=== PATIENT | female | born 1980 | race African-American/Black ===

== ENCOUNTER → 2018-01-10 | Outpatient (CLI) | payer BC ==
--- NOTE | 2018-01-10 11:25 | KCIC ---
PQRS Compliance Statement: One or more of the following individualized dose reduction techniques were utilized for this examination: 1. Automated exposure control 2. Adjustment of the mA and/or kV according to patient size 3. Use of iterative reconstruction technique CT abdomen/pelvis without contrast 01/10/2018 11:00 AM INDICATION: Left renal stone. Left-sided pain. COMPARISON: None available TECHNIQUE: Multiple axial CT images of the abdomen and pelvis were obtained without intravenous contrast. Coronal and sagittal reformats are provided. FINDINGS: Visualized portions of the lung bases are clear. Heart size is within normal limits. Evaluation of the solid abdominal viscera is limited by lack of intravenous contrast. No suspicious hepatic masses are identified. Spleen, bilateral adrenal glands, and pancreas are normal in appearance. Gallbladder is present without adjacent inflammatory changes. The abdominal aorta is normal in course and caliber. There are no pathologically enlarged lymph nodes in the abdomen and pelvis. There is no abdominal free fluid. There is no free intraperitoneal air. There is a 6 mm nonobstructing calculus in the interpolar left kidney. No calculi are identified in the ureters or urinary bladder. Kidneys are symmetric in appearance. No hydronephrosis. Small and large bowel are normal in caliber. There is no evidence for bowel obstruction. There are no pericolonic inflammatory changes. A normal, nondilated appendix is visualized without adjacent inflammatory changes. There may be a 3 mm appendicolith at the base of the appendix. Few scattered colonic diverticula are present. There is hazy attenuation involving the pericystic fat with mild bladder wall thickening which may be secondary to underdistention. No suspicious pelvic abnormality is visualized. No suspicious osseous abnormalities visualized. IMPRESSION: 1. There is a 6 mm nonobstructing calculus in the interpolar left kidney. No hydronephrosis. 2. Nondilated appendix is visualized with a suspected appendicolith at the base measuring 3 mm. 3. Mild bladder wall thickening with pericystic inflammatory changes as may be seen with cystitis. Correlate with urinalysis. Electronically signed by: Teri Maria MD (01/10/2018 11:22 AM) [facility]
== END | disposition home or self-care (01) ==
LOC: KCIC CT 10:32
PROVIDERS: ATTEND Family Medicine
DX: N20.0 Calculus of kidney (principal); K57.30 Diverticulosis of large intestine without perforation or abscess without bleeding
CPT/HCPCS: 74176

== ENCOUNTER → 2018-11-10 | Outpatient (CLI) | payer BC ==
--- NOTE | 2018-11-13 09:15 | RAD ---
EXAM: CT ABDOMEN/PELVIS WITHOUT CONTRAST. HISTORY: Left renal stone. TECHNIQUE: Computed tomography of the abdomen and pelvis was performed without intravenous contrast. COMPARISON: 01/10/2018. FINDINGS: Lung windows through the visualized portions of the bases reveal a 1.2 cm right lower lobe pneumatocele, likely postinflammatory. Bone windows reveal no suspicious lesions. A calcification in the right interpolar region measures 4 mm. It is not clearly within the collecting system, but may be a small completely decompressed central calyx. There are no right renal calculi. There are no ureteral calculi bilaterally. There is no hydronephrosis. No clear renal lesions are appreciated without contrast. The liver, gallbladder, pancreas, adrenal glands and spleen are unremarkable. The appendix is not inflamed. There is no small bowel obstruction. IMPRESSION: 1. A 4 mm calcification in the left renal hilus may not be within the collecting system. Considerations include a calculus within a small decompressed interpolar region calyx, or a 4 mm densely calcified renal artery aneurysm. 2. No ureteral calculi. *One or more of the following individualized dose reduction techniques were utilized for this examination: 1. Automated exposure control. 2. Adjustment of the mA and/or kV according to patient size. 3. Use of iterative reconstruction technique. Electronically signed by: Kathy Rae MD (11/13/2018 9:12 AM) [facility]
== END | disposition home or self-care (01) ==
LOC: CT 08:05 → EDSEX 08:05
PROVIDERS: ATTEND Family Medicine
DX: N20.0 Calculus of kidney (principal); J98.4 Other disorders of lung
CPT/HCPCS: 74176